=== PATIENT | male | born 1950 | race Caucasian/White ===

== ENCOUNTER 2018-06-25 11:08 | Emergency (ER) | payer MEDICARE, SELFPAY ==
[2018-06-25] VITALS (7 sets, daily range): BP systolic 90–136; BP diastolic 45–72; PULSE 85–98; RESP 11–18; TEMP 36.3–36.7; O2SAT 95–98; BMI 32.5
--- NOTE | 2018-06-25 11:11 | DI.CT.S_ITS ---
PROCEDURE: CT HEAD/BRAIN WO CON INDICATIONS: falls. confusion. on xeralto TECHNIQUE: Noncontrast 4.5 mm thick angled axial sections acquired from the foramen magnum to the vertex, with coronal and sagittal reformats. For radiation dose reduction, the following was used: automated exposure control, adjustment of mA and/or kV according to patient size. COMPARISON: None. FINDINGS: Image quality: Excellent. CSF spaces: Basal cisterns are patent. No extra-axial fluid collections. The ventricles are symmetric in size and shape. Brain: No intracranial bleeds or masses. There is cerebral volume loss for age, with resultant ventricular and sulcal prominence. There are periventricular and deep white matter chronic small vessel ischemic changes. There is intracranial internal carotid artery atherosclerosis. Skull and face: Groundglass density within the clivus is present. Calvarium and visualized facial bones otherwise appear intact, without suspicious lesions. Sinuses: Visualized sinuses and mastoids are clear. IMPRESSION: 1. No acute intracranial abnormality. 2. Fibrous dysplasia of the clivus. Dictated by: Flash Shah M.D. on 06/25/2018 at 11:44 Approved by: Flash Shah M.D. on 06/25/2018 at 11:46
--- NOTE | 2018-06-25 11:13 | ED.FALL ---
HPI - Fall General Chief Complaint: Fall Stated Complaint: confusion first, then fall, on xeralto Time Seen by Provider: 06/25/18 11:11 Source: patient and EMS Mode of arrival: EMS History of Present Illness HPI Narrative: The patient is a 68-year-old male presenting from [facility] after falling on Xarelto. According to staff he was confused all before falling. He rolled out of bed. HE HAS EXTENSIVE HISTORY. HE WAS ADMITTED AT [facility] May THROUGH THE TRANSFER TO THE [facility] WHERE HE STAYED THE THROUGH . HE WAS RELEASED YESTERDAY HIS AND ADMITTED OVER TO [facility]. HE HAS METASTATIC PROSTATE CANCER HE DEVELOPED PROFOUND WEAKNESS. HE HAD A ELEVATED LACTIC ACID AT THE TIME NO INFECTION WAS FOUND TREATED WITH IV FLUIDS. HE WAS DIAGNOSED WITH PULMONARY EMBOLISM AT [facility] TRANSITIONED OVER TO [facility]. According to records he does wax and wane in his mentation. Currently he is responsive able to answer and follow some commands but does seem a bit confused. Related Data Home Medications Medication Instructions Recorded Confirmed apixaban 5 mg PO BID 06/25/18 06/25/18 bisacodyl 5 - 10 mg PO PRN PRN 06/25/18 06/25/18 bisacodyl 10 mg [place] PRN PRN 06/25/18 06/25/18 calcium carbonate 500 mg PO Q8H PRN 06/25/18 06/25/18 dexamethasone 1 mg PO BID 06/25/18 06/25/18 diltiazem HCl 120 mg PO DAILY 06/25/18 06/25/18 insulin lispro See Rx Instructions .ROUTE .COMPLEX 06/25/18 06/25/18 magnesium hydroxide [Milk of 30 ml PO PRN PRN 06/25/18 06/25/18 Magnesia] metoprolol tartrate 50 mg PO BID 06/25/18 06/25/18 morphine 15 mg PO BID 06/25/18 06/25/18 oxycodone 5 - 10 mg PO Q6H PRN 06/25/18 06/25/18 pantoprazole 40 mg PO DAILY 06/25/18 06/25/18 polyethylene glycol 3350 17 g PO DAILY 06/25/18 06/25/18 prednisone 5 mg PO BID 06/25/18 06/25/18 sennosides [senna] 172 mg PO DAILY 06/25/18 06/25/18 sodium phosphates [Fleet Enema] 1 ea [place] PRN PRN 06/25/18 06/25/18 Allergies Allergy/AdvReac Type Severity Reaction Status Date / Time citalopram Allergy Unknown Verified 06/25/18 13:32 loratadine Allergy Unknown Verified 06/25/18 13:32 Review of Systems Review of Systems ROS Unobtainable: All systems reviewed & are unremarkable except as noted in HPI and below Constitutional Denies chills, Denies fever(s), Denies lethargy and Denies weakness Cardiovascular Denies chest pain, Denies irregular heart rhythm, Denies lightheadedness, Denies palpitations, Denies dyspnea, Denies dyspnea on exertion and Denies orthopnea Respiratory Denies cough, Denies dyspnea, Denies dyspnea on exertion and Denies wheezing Gastrointestinal Gastrointestinal: Denies abdominal pain, Denies change in bowel habits, Denies diarrhea, Denies nausea and Denies vomiting Genitourinary Denies hematuria, Denies flank pain, Denies urinary incontinence and Denies urinary urgency Musculoskeletal Denies back pain, Denies muscle weakness, Denies numbness and Denies tingling Integumentary/Breasts Denies pruritus, Denies erythema, Denies rash and Denies wounds Neurologic Denies numbness, Denies tingling and Denies weakness Endocrine Denies palpitations Allergic/Immunologic Denies wheezing Exam Initial Vital Signs Initial Vital Signs: Vital Signs Temperature 98.0 F 06/25/18 11:22 Pulse Rate 91 H 06/25/18 11:22 Respiratory Rate 12 06/25/18 11:22 Blood Pressure 90/68 06/25/18 11:22 Pulse Oximetry 95 06/25/18 11:22 Gen.: Weak chronically ill male responsive to voice follow some commands HEENT: Abrasion noted on forehead no laceration no crepitations no contusion face symmetric EOMI Neck: Supple no vertebral tenderness no step-offs Lungs: Clear bilaterally Cardiac: Regular rate and rhythm no murmur Abdomen: Soft nontender nondistended Extremities: Lower extremities are for family weak bilaterally. Unable to lift off bed. This is chronic per family. Doctor'S Assistant strength is equal bilaterally and moving upper extremity Neurologic: Alert oriented. No focal deficits. Skin: Multiple contusions 1 left side area. In bilateral arms. [facility] Social History Smoking Status: Former smoker Social History Smoking Status: Former smoker Course Orders Ordered: ED Orders 06/25/18 11:11 CT head/brain wo con Stat 06/25/18 11:34 EKG-12 Lead Stat 06/25/18 11:46 XR chest 1V Stat 06/25/18 12:15 Complete Blood Count AUTO DIFF Stat Comprehensive Metabolic Panel Stat Lactate (Lactic Acid) Stat 06/25/18 12:45 Blood Culture Stat 06/25/18 13:35 Urinalysis and Microscopic Stat 06/25/18 14:55 Lactate (Lactic Acid) Stat Discontinued Medications Sodium Chloride (Normal Saline 0.9%) 1,000 mls @ 1,000 mls/hr IV BOLUS ONE Stop: 06/25/18 13:28 Last Infusion: 06/25/18 14:00 Dose: 0 mls/hr Admin: 06/25/18 13:00 Dose: 1,000 mls/hr Sodium Chloride (Normal Saline 0.9%) 1,000 mls @ 1,000 mls/hr IV BOLUS ONE Stop: 06/25/18 15:40 Last Infusion: 06/25/18 15:52 Dose: 0 mls/hr Admin: 06/25/18 14:10 Dose: 1,000 mls/hr Oxycodone/Acetaminophen (Percocet 5/325) 2 tab PO NOW ONE Stop: 06/25/18 15:43 Last Admin: 06/25/18 15:48 Dose: 2 tab Vital Signs - 8 hr 06/25/18 11:22 06/25/18 11:30 06/25/18 12:00 Temperature 98.0 F Pulse Rate 91 H 85 86 Respiratory Rate 12 12 11 L Blood Pressure 90/68 Blood Pressure [Right Wrist] 90/45 L 95/46 L Pulse Oximetry 95 95 95 06/25/18 12:45 06/25/18 13:30 06/25/18 14:30 Temperature 97.5 F L Pulse Rate 88 98 H 88 Respiratory Rate 12 18 12 Blood Pressure Blood Pressure [Right Wrist] 116/54 L 120/56 L 136/72 Pulse Oximetry 98 98 95 06/25/18 18:24 Temperature 97.4 F L Pulse Rate 88 Respiratory Rate 16 Blood Pressure 135/65 Blood Pressure [Right Wrist] Pulse Oximetry 98 MDM - Fall Medical Records Attestation: I reviewed the patient's medical records. Lab Data Attestation: I reviewed the patient's lab results. Result diagrams: 06/25/18 12:15 06/25/18 12:15 Lab Results 06/25/18 06/25/18 06/25/18 Range/Units 12:15 12:15 12:15 WBC 14.6 H D (4.5-11.0) X10^3/uL RBC 4.09 L (4.5-5.9) X10^6/uL Hgb 13.2 L (13.5-17.5) g/dL Hct 39.8 L (41-53) % MCV 97.2 (80-100) fL MCH 32.4 (26-34) PG MCHC 33.3 (30-36) % RDW 19.9 H (11.6-14.8) % Plt Count 105 L (150-400) X10^3/uL Neut % (Auto) Not Reportable Lymph % (Auto) Not Reportable [place] % (Auto) Not Reportable Eos % (Auto) Not Reportable Baso % (Auto) Not Reportable Lymph # (Auto) Not Reportable [place] # (Auto) Not Reportable Baso # (Auto) Not Reportable Total Counted 100 Seg Neutrophils % 85.0 H (38-70) % Band Neutrophils % 5.0 (3-7) % Lymphocytes % (Manual) 4.0 L (25-45) % Monocytes % (Manual) 4.0 (2-11) % Metamyelocytes % 1.0 H (-0) % Myelocytes % 1.0 H (-0) % Neutrophils # (Manual) 03602 H (3889-5081) /uL RBC Morphology See below Polychromasia 1+ H Anisocytosis 2+ H Sodium 131 L (137-145) mmol/L Potassium 4.4 (3.4-5.1) mmol/L Chloride 95 L (98-107) mmol/L Carbon Dioxide 26 (22-32) mmol/L BUN 29 H (9-20) mg/dL Creatinine 0.70 (0.66-1.25) mg/dL Estimated GFR > 60.0 (>60) mL/min BUN/Creatinine Ratio 41.4 H (6-22) Glucose 169 H (80-110) mg/dL Lactate 3.3 H (0.7-2.1) mmol/L Calcium 9.3 (8.4-10.2) mg/dL Total Bilirubin 1.4 H (0.2-1.3) mg/dL AST 104 H (17-59) IU/L ALT 244 H (21-72) IU/L Alkaline Phosphatase 325 H (38-126) U/L Total Protein 6.2 L (6.3-8.2) g/dL Albumin 3.8 (3.5-5.0) g/dL Globulin 2.4 (1.7-4.1) g/dL Albumin/Globulin Ratio 1.6 (1.0-2.8) Urine Color Urine Appearance Urine pH (4.5-8.0) Ur Specific Mcloud (1.000-1.035) Urine Protein (Negative) Urine Glucose (UA) (Negative) g/dL Urine Ketones (NEGATIVE) Urine Occult Blood (Negative) Urine Nitrate (Negative) Urine Bilirubin (NEGATIVE) Urine Urobilinogen (0.2) E.U./dL Ur Leukocyte Esterase (NEGATIVE) Urine RBC (0-5/HPF) Urine WBC (0-5/HPF) Urine Bacteria (None) Urine Mucus (Negative) Ur Culture Indicated? 06/25/18 06/25/18 Range/Units 13:35 14:55 WBC (4.5-11.0) X10^3/uL RBC (4.5-5.9) X10^6/uL Hgb (13.5-17.5) g/dL Hct (41-53) % MCV (80-100) fL MCH (26-34) PG MCHC (30-36) % RDW (11.6-14.8) % Plt Count (150-400) X10^3/uL Neut % (Auto) Lymph % (Auto) [place] % (Auto) Eos % (Auto) Baso % (Auto) Lymph # (Auto) [place] # (Auto) Baso # (Auto) Total Counted Seg Neutrophils % (38-70) % Band Neutrophils % (3-7) % Lymphocytes % (Manual) (25-45) % Monocytes % (Manual) (2-11) % Metamyelocytes % (-0) % Myelocytes % (-0) % Neutrophils # (Manual) (4156-3575) /uL RBC Morphology Polychromasia Anisocytosis Sodium (137-145) mmol/L Potassium (3.4-5.1) mmol/L Chloride (98-107) mmol/L Carbon Dioxide (22-32) mmol/L BUN (9-20) mg/dL Creatinine (0.66-1.25) mg/dL Estimated GFR (>60) mL/min BUN/Creatinine Ratio (6-22) Glucose (80-110) mg/dL Lactate 3.2 H (0.7-2.1) mmol/L Calcium (8.4-10.2) mg/dL Total Bilirubin (0.2-1.3) mg/dL AST (17-59) IU/L ALT (21-72) IU/L Alkaline Phosphatase (38-126) U/L Total Protein (6.3-8.2) g/dL Albumin (3.5-5.0) g/dL Globulin (1.7-4.1) g/dL Albumin/Globulin Ratio (1.0-2.8) Urine Color Yellow Urine Appearance Clear Urine pH 5.0 (4.5-8.0) Ur Specific Mcloud >=1.030 H (1.000-1.035) Urine Protein 2+ H (Negative) Urine Glucose (UA) Negative (Negative) g/dL Urine Ketones Negative (NEGATIVE) Urine Occult Blood 2+ H (Negative) Urine Nitrate Negative (Negative) Urine Bilirubin Negative (NEGATIVE) Urine Urobilinogen 1.0 (0.2) E.U./dL Ur Leukocyte Esterase Negative (NEGATIVE) Urine RBC 1-5/hpf (0-5/HPF) Urine WBC 0-1/hpf (0-5/HPF) Urine Bacteria Few (2-10) H (None) Urine Mucus 1+ H (Negative) Ur Culture Indicated? Cult not indicated Imaging Data CT scan - head: Radiologist's impression: PROCEDURE: CT HEAD/BRAIN WO CON INDICATIONS: falls. confusion. on xeralto TECHNIQUE: Noncontrast 4.5 mm thick angled axial sections acquired from the foramen magnum to the vertex, with coronal and sagittal reformats. For radiation dose reduction, the following was used: automated exposure control, adjustment of mA and/or kV according to patient size. COMPARISON: None. FINDINGS: Image quality: Excellent. CSF spaces: Basal cisterns are patent. No extra-axial fluid collections. The ventricles are symmetric in size and shape. Brain: No intracranial bleeds or masses. There is cerebral volume loss for age, with resultant ventricular and sulcal prominence. There are periventricular and deep white matter chronic small vessel ischemic changes. There is intracranial internal carotid artery atherosclerosis. Skull and face: Groundglass density within the clivus is present. Calvarium and visualized facial bones otherwise appear intact, without suspicious lesions. Sinuses: Visualized sinuses and mastoids are clear. IMPRESSION: 1. No acute intracranial abnormality. 2. Fibrous dysplasia of the clivus. Dictated by: Flash hSah M.D. on 06/25/2018 at 11:44 Chest x-ray: Radiologist's impression: PROCEDURE: CT HEAD/BRAIN WO CON INDICATIONS: falls. confusion. on xeralto TECHNIQUE: Noncontrast 4.5 mm thick angled axial sections acquired from the foramen magnum to the vertex, with coronal and sagittal reformats. For radiation dose reduction, the following was used: automated exposure control, adjustment of mA and/or kV according to patient size. COMPARISON: None. FINDINGS: Image quality: Excellent. CSF spaces: Basal cisterns are patent. No extra-axial fluid collections. The ventricles are symmetric in size and shape. Brain: No intracranial bleeds or masses. There is cerebral volume loss for age, with resultant ventricular and sulcal prominence. There are periventricular and deep white matter chronic small vessel ischemic changes. There is intracranial internal carotid artery atherosclerosis. Skull and face: Groundglass density within the clivus is present. Calvarium and visualized facial bones otherwise appear intact, without suspicious lesions. Sinuses: Visualized sinuses and mastoids are clear. IMPRESSION: 1. No acute intracranial abnormality. 2. Fibrous dysplasia of the clivus. Dictated by: Flash Shah M.D. on 06/25/2018 at 11:44 ECG Data Attestation: I personally reviewed and interpreted this ECG as follows: Prior ECG tracings: not available for review Interpretation: Sinus rhythm rate [address] changes or T-wave inversions no priors to compare MDM Narrative Medical decision making narrative: After IV fluids the patient becomes more responsive alert and back to baseline according to family. He has mild leukocytosis. Ever no infection identified at this time. Leukocytosis a few hours earlier was 8.6 which increased to 14.8. This time I do not believe it to be infectious. He does have a mild lactic acid he is given IV fluids overall appearing. I discussed case with the nurse practitioner in charge doubt go rehab. She agrees and understands to follow patient at on return. At this time family feels like he is back to baseline and ready and able to return to rehab. Discharge Plan Departure Patient Disposition: [facility] Clinical Impression: Closed head injury Qualifiers: Encounter type: initial encounter Qualified Code(s): S09.90XA - Unspecified injury of head, initial encounter Discharge Date/Time: 06/25/18 18:24 Interventions: ED Discharge Assessment Last Done: 06/25/18 18:24 Prescriptions: No Action sennosides [senna] 8.6 mg Tablet 172 mg PO DAILY RF: 0 polyethylene glycol 3350 17 gram Powder In Packet 17 g PO DAILY RF: 0 prednisone 5 mg tablet 5 mg PO BID RF: 0 magnesium hydroxide [Milk of Magnesia] 400 mg/5 mL Suspension 30 ml PO PRN PRN (Reason: Constipation) RF: 0 dexamethasone 1 mg Tablet 1 mg PO BID RF: 0 bisacodyl 10 mg Suppository 10 mg [place] PRN PRN (Reason: Constipation) RF: 0 pantoprazole 40 mg Tablet,Delayed Release (Dr/Ec) 40 mg PO DAILY RF: 0 metoprolol tartrate 50 mg Tablet 50 mg PO BID RF: 0 Fleet Enema 19-7 gram/118 mL Enema 1 ea [place] PRN PRN (Reason: Constipation) RF: 0 morphine 15 mg tablet extended release 15 mg PO BID RF: 0 calcium carbonate 500 mg calcium (1,250 mg) Tablet,Chewable 500 mg PO Q8H PRN (Reason: heartburn or indigestion) RF: 0 insulin lispro 100 unit/mL Solution See Rx Instructions .ROUTE .COMPLEX RF: 0 oxycodone 5 mg Tablet 5 - 10 mg PO Q6H PRN (Reason: Breakthrough Pain) RF: 0 bisacodyl 5 mg Tablet 5 - 10 mg PO PRN PRN (Reason: mild to severe constipation) RF: 0 diltiazem HCl 120 mg Tablet Extended Release 24 Hr 120 mg PO DAILY RF: 0 apixaban 5 mg Tablet 5 mg PO BID RF: 0
--- NOTE | 2018-06-25 11:16 | ED_ITS ---
HPI - Fall General Chief Complaint: Fall Stated Complaint: confusion first, then fall, on xeralto Time Seen by Provider: 06/25/18 11:11 Source: patient and EMS Mode of arrival: EMS History of Present Illness HPI Narrative: The patient is a 68-year-old male presenting from [facility] after falling on Xarelto. According to staff he was confused all before falling. He rolled out of bed. HE HAS EXTENSIVE HISTORY. HE WAS ADMITTED AT [facility] May THROUGH THE TRANSFER TO THE [facility] WHERE HE STAYED THE THROUGH . HE WAS RELEASED YESTERDAY HIS AND ADMITTED OVER TO [facility]. HE HAS METASTATIC PROSTATE CANCER HE DEVELOPED PROFOUND WEAKNESS. HE HAD A ELEVATED LACTIC ACID AT THE TIME NO INFECTION WAS FOUND TREATED WITH IV FLUIDS. HE WAS DIAGNOSED WITH PULMONARY EMBOLISM AT [facility] TRANSITIONED OVER TO [facility]. According to records he does wax and wane in his mentation. Currently he is responsive able to answer and follow some commands but does seem a bit confused. Related Data Home Medications Medication Instructions Recorded Confirmed apixaban 5 mg PO BID 06/25/18 06/25/18 bisacodyl 5 - 10 mg PO PRN PRN 06/25/18 06/25/18 bisacodyl 10 mg NM PRN PRN 06/25/18 06/25/18 calcium carbonate 500 mg PO Q8H PRN 06/25/18 06/25/18 dexamethasone 1 mg PO BID 06/25/18 06/25/18 diltiazem HCl 120 mg PO DAILY 06/25/18 06/25/18 insulin lispro See Rx Instructions .ROUTE .COMPLEX 06/25/18 06/25/18 magnesium hydroxide [Milk of 30 ml PO PRN PRN 06/25/18 06/25/18 Magnesia] metoprolol tartrate 50 mg PO BID 06/25/18 06/25/18 morphine 15 mg PO BID 06/25/18 06/25/18 oxycodone 5 - 10 mg PO Q6H PRN 06/25/18 06/25/18 pantoprazole 40 mg PO DAILY 06/25/18 06/25/18 polyethylene glycol 3350 17 g PO DAILY 06/25/18 06/25/18 prednisone 5 mg PO BID 06/25/18 06/25/18 sennosides [senna] 172 mg PO DAILY 06/25/18 06/25/18 sodium phosphates [Fleet Enema] 1 ea NM PRN PRN 06/25/18 06/25/18 Allergies Allergy/AdvReac Type Severity Reaction Status Date / Time citalopram Allergy Unknown Verified 06/25/18 13:32 loratadine Allergy Unknown Verified 06/25/18 13:32 Review of Systems Review of Systems ROS Unobtainable: All systems reviewed & are unremarkable except as noted in HPI and below Constitutional Denies chills, Denies fever(s), Denies lethargy and Denies weakness Cardiovascular Denies chest pain, Denies irregular heart rhythm, Denies lightheadedness, Denies palpitations, Denies dyspnea, Denies dyspnea on exertion and Denies orthopnea Respiratory Denies cough, Denies dyspnea, Denies dyspnea on exertion and Denies wheezing Gastrointestinal Gastrointestinal: Denies abdominal pain, Denies change in bowel habits, Denies diarrhea, Denies nausea and Denies vomiting Genitourinary Denies hematuria, Denies flank pain, Denies urinary incontinence and Denies urinary urgency Musculoskeletal Denies back pain, Denies muscle weakness, Denies numbness and Denies tingling Integumentary/Breasts Denies pruritus, Denies erythema, Denies rash and Denies wounds Neurologic Denies numbness, Denies tingling and Denies weakness Endocrine Denies palpitations Allergic/Immunologic Denies wheezing Exam Initial Vital Signs Initial Vital Signs: Vital Signs Temperature 98.0 F 06/25/18 11:22 Pulse Rate 91 H 06/25/18 11:22 Respiratory Rate 12 06/25/18 11:22 Blood Pressure 90/68 06/25/18 11:22 Pulse Oximetry 95 06/25/18 11:22 Gen.: Weak chronically ill male responsive to voice follow some commands HEENT: Abrasion noted on forehead no laceration no crepitations no contusion face symmetric EOMI Neck: Supple no vertebral tenderness no step-offs Lungs: Clear bilaterally Cardiac: Regular rate and rhythm no murmur Abdomen: Soft nontender nondistended Extremities: Lower extremities are for family weak bilaterally. Unable to lift off bed. This is chronic per family. [employer] strength is equal bilaterally and moving upper extremity Neurologic: Alert oriented. No focal deficits. Skin: Multiple contusions 1 left side area. In bilateral arms. FORMERLY [facility], [facility]–1983 Social History Smoking Status: Former smoker Social History Smoking Status: Former smoker Course Orders Ordered: ED Orders 06/25/18 11:11 CT head/brain wo con Stat 06/25/18 11:34 EKG-12 Lead Stat 06/25/18 11:46 XR chest 1V Stat 06/25/18 12:15 Complete Blood Count AUTO DIFF Stat Comprehensive Metabolic Panel Stat Lactate (Lactic Acid) Stat 06/25/18 12:45 Blood Culture Stat 06/25/18 13:35 Urinalysis and Microscopic Stat 06/25/18 14:55 Lactate (Lactic Acid) Stat Discontinued Medications Sodium Chloride (Normal Saline 0.9%) 1,000 mls @ 1,000 mls/hr IV BOLUS ONE Stop: 06/25/18 13:28 Last Infusion: 06/25/18 14:00 Dose: 0 mls/hr Admin: 06/25/18 13:00 Dose: 1,000 mls/hr Sodium Chloride (Normal Saline 0.9%) 1,000 mls @ 1,000 mls/hr IV BOLUS ONE Stop: 06/25/18 15:40 Last Infusion: 06/25/18 15:52 Dose: 0 mls/hr Admin: 06/25/18 14:10 Dose: 1,000 mls/hr Oxycodone/Acetaminophen (Percocet 5/325) 2 tab PO NOW ONE Stop: 06/25/18 15:43 Last Admin: 06/25/18 15:48 Dose: 2 tab Vital Signs - 8 hr 06/25/18 11:22 06/25/18 11:30 06/25/18 12:00 Temperature 98.0 F Pulse Rate 91 H 85 86 Respiratory Rate 12 12 11 L Blood Pressure 90/68 Blood Pressure [Right Wrist] 90/45 L 95/46 L Pulse Oximetry 95 95 95 06/25/18 12:45 06/25/18 13:30 06/25/18 14:30 Temperature 97.5 F L Pulse Rate 88 98 H 88 Respiratory Rate 12 18 12 Blood Pressure Blood Pressure [Right Wrist] 116/54 L 120/56 L 136/72 Pulse Oximetry 98 98 95 06/25/18 18:24 Temperature 97.4 F L Pulse Rate 88 Respiratory Rate 16 Blood Pressure 135/65 Blood Pressure [Right Wrist] Pulse Oximetry 98 MDM - Fall Medical Records Attestation: I reviewed the patient's medical records. Lab Data Attestation: I reviewed the patient's lab results. Result diagrams: 06/25/18 12:15 06/25/18 12:15 Lab Results 06/25/18 06/25/18 06/25/18 Range/Units 12:15 12:15 12:15 WBC 14.6 H D (4.5-11.0) X10^3/uL RBC 4.09 L (4.5-5.9) X10^6/uL Hgb 13.2 L (13.5-17.5) g/dL Hct 39.8 L (41-53) % MCV 97.2 (80-100) fL MCH 32.4 (26-34) PG MCHC 33.3 (30-36) % RDW 19.9 H (11.6-14.8) % Plt Count 105 L (150-400) X10^3/uL Neut % (Auto) Not Reportable Lymph % (Auto) Not Reportable [place] % (Auto) Not Reportable Eos % (Auto) Not Reportable Baso % (Auto) Not Reportable Lymph # (Auto) Not Reportable [place] # (Auto) Not Reportable Baso # (Auto) Not Reportable Total Counted 100 Seg Neutrophils % 85.0 H (38-70) % Band Neutrophils % 5.0 (3-7) % Lymphocytes % (Manual) 4.0 L (25-45) % Monocytes % (Manual) 4.0 (2-11) % Metamyelocytes % 1.0 H (-0) % Myelocytes % 1.0 H (-0) % Neutrophils # (Manual) 57652 H (9676-8562) /uL RBC Morphology See below Polychromasia 1+ H Anisocytosis 2+ H Sodium 131 L (137-145) mmol/L Potassium 4.4 (3.4-5.1) mmol/L Chloride 95 L (98-107) mmol/L Carbon Dioxide 26 (22-32) mmol/L BUN 29 H (9-20) mg/dL Creatinine 0.70 (0.66-1.25) mg/dL Estimated GFR > 60.0 (>60) mL/min BUN/Creatinine Ratio 41.4 H (6-22) Glucose 169 H (80-110) mg/dL Lactate 3.3 H (0.7-2.1) mmol/L Calcium 9.3 (8.4-10.2) mg/dL Total Bilirubin 1.4 H (0.2-1.3) mg/dL AST 104 H (17-59) IU/L ALT 244 H (21-72) IU/L Alkaline Phosphatase 325 H (38-126) U/L Total Protein 6.2 L (6.3-8.2) g/dL Albumin 3.8 (3.5-5.0) g/dL Globulin 2.4 (1.7-4.1) g/dL Albumin/Globulin Ratio 1.6 (1.0-2.8) Urine Color Urine Appearance Urine pH (4.5-8.0) Ur Specific [place] (1.000-1.035) Urine Protein (Negative) Urine Glucose (UA) (Negative) g/dL Urine Ketones (NEGATIVE) Urine Occult Blood (Negative) Urine Nitrate (Negative) Urine Bilirubin (NEGATIVE) Urine Urobilinogen (0.2) E.U./dL Ur Leukocyte Esterase (NEGATIVE) Urine RBC (0-5/HPF) Urine WBC (0-5/HPF) Urine Bacteria (None) Urine Mucus (Negative) Ur Culture Indicated? 06/25/18 06/25/18 Range/Units 13:35 14:55 WBC (4.5-11.0) X10^3/uL RBC (4.5-5.9) X10^6/uL Hgb (13.5-17.5) g/dL Hct (41-53) % MCV (80-100) fL MCH (26-34) PG MCHC (30-36) % RDW (11.6-14.8) % Plt Count (150-400) X10^3/uL Neut % (Auto) Lymph % (Auto) [place] % (Auto) Eos % (Auto) Baso % (Auto) Lymph # (Auto) [place] # (Auto) Baso # (Auto) Total Counted Seg Neutrophils % (38-70) % Band Neutrophils % (3-7) % Lymphocytes % (Manual) (25-45) % Monocytes % (Manual) (2-11) % Metamyelocytes % (-0) % Myelocytes % (-0) % Neutrophils # (Manual) (6956-6986) /uL RBC Morphology Polychromasia Anisocytosis Sodium (137-145) mmol/L Potassium (3.4-5.1) mmol/L Chloride (98-107) mmol/L Carbon Dioxide (22-32) mmol/L BUN (9-20) mg/dL Creatinine (0.66-1.25) mg/dL Estimated GFR (>60) mL/min BUN/Creatinine Ratio (6-22) Glucose (80-110) mg/dL Lactate 3.2 H (0.7-2.1) mmol/L Calcium (8.4-10.2) mg/dL Total Bilirubin (0.2-1.3) mg/dL AST (17-59) IU/L ALT (21-72) IU/L Alkaline Phosphatase (38-126) U/L Total Protein (6.3-8.2) g/dL Albumin (3.5-5.0) g/dL Globulin (1.7-4.1) g/dL Albumin/Globulin Ratio (1.0-2.8) Urine Color Yellow Urine Appearance Clear Urine pH 5.0 (4.5-8.0) Ur Specific [place] >=1.030 H (1.000-1.035) Urine Protein 2+ H (Negative) Urine Glucose (UA) Negative (Negative) g/dL Urine Ketones Negative (NEGATIVE) Urine Occult Blood 2+ H (Negative) Urine Nitrate Negative (Negative) Urine Bilirubin Negative (NEGATIVE) Urine Urobilinogen 1.0 (0.2) E.U./dL Ur Leukocyte Esterase Negative (NEGATIVE) Urine RBC 1-5/hpf (0-5/HPF) Urine WBC 0-1/hpf (0-5/HPF) Urine Bacteria Few (2-10) H (None) Urine Mucus 1+ H (Negative) Ur Culture Indicated? Cult not indicated Imaging Data CT scan - head: Radiologist's impression: PROCEDURE: CT HEAD/BRAIN WO CON INDICATIONS: falls. confusion. on xeralto TECHNIQUE: Noncontrast 4.5 mm thick angled axial sections acquired from the foramen magnum to the vertex, with coronal and sagittal reformats. For radiation dose reduction, the following was used: automated exposure control, adjustment of mA and/or kV according to patient size. COMPARISON: None. FINDINGS: Image quality: Excellent. CSF spaces: Basal cisterns are patent. No extra-axial fluid collections. The ventricles are symmetric in size and shape. Brain: No intracranial bleeds or masses. There is cerebral volume loss for age, with resultant ventricular and sulcal prominence. There are periventricular and deep white matter chronic small vessel ischemic changes. There is intracranial internal carotid artery atherosclerosis. Skull and face: Groundglass density within the clivus is present. Calvarium and visualized facial bones otherwise appear intact, without suspicious lesions. Sinuses: Visualized sinuses and mastoids are clear. IMPRESSION: 1. No acute intracranial abnormality. 2. Fibrous dysplasia of the clivus. Dictated by: Flash Shah M.D. on 06/25/2018 at 11:44 Chest x-ray: Radiologist's impression: PROCEDURE: CT HEAD/BRAIN WO CON INDICATIONS: falls. confusion. on xeralto TECHNIQUE: Noncontrast 4.5 mm thick angled axial sections acquired from the foramen magnum to the vertex, with coronal and sagittal reformats. For radiation dose reduction, the following was used: automated exposure control, adjustment of mA and/or kV according to patient size. COMPARISON: None. FINDINGS: Image quality: Excellent. CSF spaces: Basal cisterns are patent. No extra-axial fluid collections. The ventricles are symmetric in size and shape. Brain: No intracranial bleeds or masses. There is cerebral volume loss for age, with resultant ventricular and sulcal prominence. There are periventricular and deep white matter chronic small vessel ischemic changes. There is intracranial internal carotid artery atherosclerosis. Skull and face: Groundglass density within the clivus is present. Calvarium and visualized facial bones otherwise appear intact, without suspicious lesions. Sinuses: Visualized sinuses and mastoids are clear. IMPRESSION: 1. No acute intracranial abnormality. 2. Fibrous dysplasia of the clivus. Dictated by: Flash Shah M.D. on 06/25/2018 at 11:44 ECG Data Attestation: I personally reviewed and interpreted this ECG as follows: Prior ECG tracings: not available for review Interpretation: Sinus rhythm rate [address] changes or T-wave inversions no priors to compare MDM Narrative Medical decision making narrative: After IV fluids the patient becomes more responsive alert and back to baseline according to family. He has mild leukocytosis. Ever no infection identified at this time. Leukocytosis a few h ours earlier was 8.6 which increased to 14.8. This time I do not believe it to be infectious. He does have a mild lactic acid he is given IV fluids overall appearing. I discussed case with the nurse practitioner in charge doubt go rehab. She agrees and understands to follow patient at on return. At this time family feels like he is back to baseline and ready and able to return to rehab. Discharge Plan Departure Patient Disposition: [facility] Clinical Impression: Closed head injury Qualifiers: Encounter type: initial encounter Qualified Code(s): S09.90XA - Unspecified injury of head, initial encounter Discharge Date/Time: 06/25/18 18:24 Interventions: ED Discharge Assessment Last Done: 06/25/18 18:24 Prescriptions: No Action sennosides [senna] 8.6 mg Tablet 172 mg PO DAILY RF: 0 polyethylene glycol 3350 17 gram Powder In Packet 17 g PO DAILY RF: 0 prednisone 5 mg tablet 5 mg PO BID RF: 0 magnesium hydroxide [Milk of Magnesia] 400 mg/5 mL Suspension 30 ml PO PRN PRN (Reason: Constipation) RF: 0 dexamethasone 1 mg Tablet 1 mg PO BID RF: 0 bisacodyl 10 mg Suppository 10 mg NM PRN PRN (Reason: Constipation) RF: 0 pantoprazole 40 mg Tablet,Delayed Release (Dr/Ec) 40 mg PO DAILY RF: 0 metoprolol tartrate 50 mg Tablet 50 mg PO BID RF: 0 Fleet Enema 19-7 gram/118 mL Enema 1 ea NM PRN PRN (Reason: Constipation) RF: 0 morphine 15 mg tablet extended release 15 mg PO BID RF: 0 calcium carbonate 500 mg calcium (1,250 mg) Tablet,Chewable 500 mg PO Q8H PRN (Reason: heartburn or indigestion) RF: 0 insulin lispro 100 unit/mL Solution See Rx Instructions .ROUTE .COMPLEX RF: 0 oxycodone 5 mg Tablet 5 - 10 mg PO Q6H PRN (Reason: Breakthrough Pain) RF: 0 bisacodyl 5 mg Tablet 5 - 10 mg PO PRN PRN (Reason: mild to severe constipation) RF: 0 diltiazem HCl 120 mg Tablet Extended Release 24 Hr 120 mg PO DAILY RF: 0 apixaban 5 mg Tablet 5 mg PO BID RF: 0
--- NOTE | 2018-06-25 11:46 | DI.RAD.S_ITS ---
PROCEDURE: XR CHEST 1V INDICATIONS: confusion TECHNIQUE: One view of the chest was acquired. COMPARISON: [facility], CT, CT HEAD/BRAIN WO CON, 06/25/2018, 11:23. FINDINGS: Surgical changes and devices: None. Lungs and pleura: Lungs are clear. No pleural effusions or pneumothorax. Mediastinum: Mediastinal contours appear normal. Heart size is normal. Bones and chest wall: There is diffusely increased osseous density and multiple sclerotic lesions, suspicious for widespread osseous metastasis. Overlying soft tissues appear unremarkable. IMPRESSION: 1. No acute cardiopulmonary disease. 2. Suspect extensive osseous metastasis. Dictated by: Foreign Elder M.D. on 06/25/2018 at 12:46 Approved by: Foreign Elder M.D. on 06/25/2018 at 12:48
--- NOTE | 2018-06-25 12:04 | PC.NURSE ---
Patient with large, old healing contusions on bilateral forearms and flank area;
[2018-06-25 12:27] LABS: Hematocrit 39.8 % (41-53); Hemoglobin 13.2 g/dL (13.5-17.5); Mean Corpuscular HGB Conc 33.3 % (30-36); Mean Corpuscular Hemoglobin 32.4 PG (26-34); Mean Corpuscular Volume 97.2 fL (80-100); Red Blood Cell Count 4.09 X10^6/uL (4.5-5.9); Red Cell Distribution Width 19.9 % (11.6-14.8); White Blood Cell Count 14.6 X10^3/uL (4.5-11.0)
[2018-06-25 12:29] LABS: Add Manual Diff / Slide Review YES; Platelet Count 105 X10^3/uL (150-400)
[2018-06-25 12:40] LABS: Lactate (Lactic Acid) 3.3 mmol/L (0.7-2.1)
[2018-06-25 12:41] LABS: Alanine Aminotransferase 244 IU/L (21-72); Albumin 3.8 g/dL (3.5-5.0); Albumin Globulin Ratio 1.6 (1.0-2.8); Alkaline Phosphatase 325 U/L (38-126); Aspartate Aminotransferase 104 IU/L (17-59); BUN Creatinine Ratio 41.4 (6-22); Bilirubin Total 1.4 mg/dL (0.2-1.3); Blood Urea Nitrogen 29 mg/dL (9-20); Calcium 9.3 mg/dL (8.4-10.2); Carbon Dioxide 26 mmol/L (22-32); Chloride 95 mmol/L (98-107); Estimated Glomerular Filt Rate > 60.0 mL/min (>60); Globulin 2.4 g/dL (1.7-4.1); Glucose 169 mg/dL (80-110); HEMOLYSIS 34 (0-50); Potassium 4.4 mmol/L (3.4-5.1); Sodium 131 mmol/L (137-145); Total Protein 6.2 g/dL (6.3-8.2)
[2018-06-25] MEDS: SODIUM CHLORIDE 0.9% 1,000 ML 1000 ML IV ×2 (13:00→14:10)
[2018-06-25 13:05] LABS: Neutrophils Absolute Manual 13140 /uL (3000-5900); Total Cells Counted 100
[2018-06-25 13:07] LABS: Anisocytosis 2+; Polychromasia 1+
[2018-06-25 13:40] LABS: Appearance Urine UA CLEAR; Bilirubin Urine UA NEGATIVE (NEGATIVE); Color Urine UA YELLOW; Glucose Urine UA NEGATIVE (Negative); Ketones Urine UA NEGATIVE (NEGATIVE); Leukocyte Esterase Urine UA NEGATIVE (NEGATIVE); Nitrite Urine UA NEGATIVE (Negative); Occult Blood Urine UA 2+ (Negative); Protein Urine UA 2+ (Negative); Specific Gravity Urine UA >=1.030 (1.000-1.035)
[2018-06-25 13:48] LABS: RBC Urine 1-5/HPF (0-5/HPF); WBC Urine 0-1/HPF (0-5/HPF)
[2018-06-25 13:49] LABS: Bacteria Urine Few (2-10); Culture Indicated Urine Cult Not Indicated; Mucus Urine 1+ (Negative)
[2018-06-25 15:16] LABS: Lactate (Lactic Acid) 3.2 mmol/L (0.7-2.1)
[2018-06-25] MEDS: OXYCODONE/ACETAMINOPHEN 5/325 TABLET 2 TAB PO (15:48)
[2018-06-25 16:21] LABS: Reflexed Lactate in 2 Hours Y
[2018-06-25 18:56] LABS: Reflexed Lactate in 2 Hours Y
== END 2018-06-25 18:24 ==
PROVIDERS: Emergency Provider Emergency Medicine
DX: S09.90XA Unspecified injury of head, initial encounter (principal); W06.XXXA Fall from bed, initial encounter
CPT/HCPCS: 36415; 36591; 51701; 70450; 71045; 80053; 81001; 83605; 85025; 87040; 93005; 93010; 96360; 96361; 99285; 99291